=== PATIENT | female | born 1960 | race Caucasian/White ===

== ENCOUNTER 2024-10-16 05:49 | Emergency (ER) | payer MEDICARE ==
[~2024-10-16] VITALS: Ht 165.1 cm; Wt 86.2 kg
[2024-10-16 06:54] LABS: BASO # 0.1 10*3/uL (0.0-0.1); BASO % 0.8 % (0.0-1.0); EOS # 0.2 10*3/uL (0.0-0.4); EOS % 1.6 % (1.0-4.0); HEMATOCRIT 48.6 % (37.0-47.0); MEAN CELL VOLUME 93.8 fl (81.0-99.0); MEAN CORPUSCULAR HGB 29.3 pg (27.0-31.0); MEAN CORPUSCULAR HGB CONC 31.3 g/dl (33.0-37.0); MEAN PLATELET VOLUME 10.2 fl (9.6-12.3); MONO # 0.9 10*3/uL (0.1-1.0); MONO % 8.5 % (3.0-9.0); NEUT # 7.9 10*3/uL (2.3-7.9); NEUT % 72.3 % (47.0-73.0); PLATELET COUNT AUTOMATED 317 10*3/uL (130-400); RED BLOOD COUNT 5.18 10*6/uL (4.10-5.10); RED CELL DISTRI WIDTH 13.3 % (0-14.5)
[2024-10-16 06:56] LABS: BILIRUBIN Negative (Negative); BLOOD Negative (Negative); CLARITY Clear (Clear); COLOR Yellow (Yellow); GLUCOSE Negative (Negative); KETONE Negative (Negative); LEUKO ESTERASE Negative (Negative); NITRITE Negative (Negative); PH 6.5 (4.5-8.0); UROBILINOGEN 0.2 E.U./dl (0.0-1.0)
[2024-10-16 07:09] LABS: BUN 10 mg/dl (9-23); CHLORIDE 100 mmol/L (98-107); POTASSIUM 3.8 mmol/L (3.4-5.1)
[2024-10-16 07:27] LABS: EPITHELIAL CELLS 0-2; WBC 0-2 wbc/hpf (0-5)
[2024-10-16] MEDS ORDERED: MELOXICAM15 MG PO (07:54)
[2024-10-16] MEDS ORDERED: AMOX-CLAV 875-1 EACH PO (07:54)
[2024-10-16] MEDS ORDERED: cefTRIAXone Sodium 1 GM/10 ML SYR IV ONE (07:55)
[2024-10-16] MEDS ORDERED: Ketorolac Tromethamine 15 MG/ML VIAL IV ONE (07:55)
== END 2024-10-16 08:58 | disposition home or self-care (01) ==
LOC: ED 05:49
PROVIDERS: Emergency Medicine
DX: N12 Tubulo-interstitial nephritis, not specified as acute or chronic (principal); Z88.2 Allergy status to sulfonamides; Z88.5 Allergy status to narcotic agent